=== PATIENT | male | born 1990 | race Caucasian/White ===

== ENCOUNTER 2021-10-15 19:06 | Emergency (ER) | payer BC, SELFPAY ==
[2021-10-15 19:16] VITALS: BP 110/72; PULSE 121; RESP 22; TEMP 38.1; O2SAT 94; BMI 28.5
[2021-10-15] MEDS: acetaminophen 500 mg Tablet 1000 MG PO (19:57)
[2021-10-15 19:58] LABS: Basophils % 0.2 %; Hematocrit 43.5 % (42.0-52.0); Hemoglobin 15.1 g/dL (11.7-16.6); Lymphocytes # 0.7 10^3/uL (0.8-4.8); Lymphocytes % 15.5 %; Mean Corpuscular HGB Conc 34.7 g/dL (30.0-36.0); Mean Corpuscular Hemoglobin 30.8 pg (28.0-34.0); Mean Corpuscular Volume 88.8 fl (80-94); Mean Platelet Volume 10.9 fL (7.4-10.4); Monocytes # 0.1 10^3/uL (0.2-0.9); Monocytes % 3.2 %; Neutrophils # 3.54 10^3/uL (1.8-7.7); Neutrophils % 80.9 %; Nucleated Red Blood Cells % 0 %; Platelet Count 81 10^3/cmm (130-400); Red Cell Distribution Width 11.4 % (12.1-15.1); White Blood Count 4.4 10^3/uL (4.0-10.0)
[2021-10-15 20:09] LABS: Alanine Aminotransferase 45 U/L (0-41); Albumin Level 4.2 g/dL (3.5-5.2); Alkaline Phosphatase 57 IU/L (40-130); Anion Gap 15.6 (5-19); Aspartate Amino Transferase 70 U/L (0-40); Blood Urea Nitrogen 10 mg/dL (6-20); Calcium 7.7 mg/dL (8.5-10.5); Carbon Dioxide 27 mmol/L (22-29); Chloride 96 mmol/L (98-107); Globulin 2.4 g/dL (1.3-4.6); Glomerular Filtration Rate 69.7 mL/min (90-130); Glucose 99 mg/dL (65-115); Lipase 52 U/L (13-60); Osmolality Calculated 279 mOsm/kg (285-295); Potassium 3.6 mmol/L (3.5-5.1); Sodium 135 mmol/L (136-145); Total Bilirubin 0.3 mg/dL (0.15-1.2); Total Protein 6.6 g/dL (6.6-8.7)
[2021-10-15 21:13] VITALS: TEMP 38.1
--- NOTE | 2021-10-15 21:32 | XRR_ITS ---
PROCEDURE INFORMATION: Exam: XR Chest Exam date and time: 10/15/2021 9:32 PM Age: 31 years old Clinical indication: Cough and shortness of breath; Additional info: Covid+ , fevers TECHNIQUE: Imaging protocol: XR of the chest. Views: 1 view. COMPARISON: No relevant prior studies available. FINDINGS: Lungs: Unremarkable. No consolidation. Pleural spaces: Unremarkable. No pleural effusion. No pneumothorax. Heart/Mediastinum: Unremarkable. No cardiomegaly. Bones/joints: Unremarkable. XR/XR chest 1V portable [id number] IMPRESSION: No acute findings.
--- NOTE | 2021-10-15 22:31 | PC.NURSE ---
patient in no obivous distress. patient given ice water for nourishment per provider. patient sitting in chair. Patinet informed of wait.. patient denies further needs/complaints at this time.
--- NOTE | 2021-10-15 22:34 | ED_ITS ---
HPI - Nausea/Vomiting/Diarrhea General: Chief complaint: Nausea/Vomiting/Diarrhea Stated complaint: covid +, N/V Time Seen by Provider: 10/15/21 21:39 History of Present Illness: HPI Narrative: Patient is a 31-year-old male comes to the ED with Covid symptoms. Patient says symptoms started approximately 5 days ago. He has been having a cough that is dry nonproductive. Last 3 days he has developed nausea, vomiting and diarrhea. He went to [facility] yesterday in tested positive for COVID-19 and is set up to have monoclonal antibody infusions done on Wednesday. He was discharged home from [facility] yesterday with some Zofran and that has helped with his nausea. Associated nausea: Yes Associated symtoms: Reports nausea; Denies change in vision, chest pain, dysuria, fatigue, headache(s) or palpitations Review of Systems Const: Reports: fever(s); Denies: chills or fatigue Eyes: Denies: change in vision or eye discomfort ENMT: Denies: throat pain, odynophagia, nasal discharge or nasal congestion Card: Denies: chest pain, palpitations, edema, swelling of feet/ankles, dyspnea on exertion or orthopnea Resp: Reports: non-productive cough; Denies: dyspnea or productive cough GI: Reports: nausea, vomiting and diarrhea; Denies: abdominal pain, constipation or hematochezia : Denies: flank pain, difficulty urinating, dysuria or hematuria Musc: Denies: neck pain, back pain or extremity swelling Skin/Breast: Denies: rash or new lesions Neuro: Denies: headache(s), numbness in extremities or weakness in extremities Physical Exam Const: COMMON NORMALS: no acute distress, patient oriented x3 and alert GENERAL APPEARANCE: cooperative and comfortable HENMT: COMMON NORMALS: normocephalic HEAD & SCALP: normocephalic MOUTH: Normal oral and palatal mucosa present THROAT: posterior oropharynx normal and uvula midline Neck/C-Spine: COMMON NORMALS: supple GENERAL: Yes normal visual inspection Resp: COMMON NORMALS: normal respiratory effort, No retractions, No use of accessory muscles and clear to auscultation bilaterally AUSCULTATION: clear to auscultation bilaterally Cardio: COMMON NORMALS: regular rate, regular rhythm, S1 normal heart sound present, S2 normal heart sound present, No gallops present (Cardio), No clicks present (Cardio), No murmurs present (Cardio) and Peripheral pulses 2+ throughout RATE: regular rate RHYTHM: regular rhythm HEART SOUNDS: S1 normal heart sound present and S2 normal heart sound present PERIPHERAL PULSES: Peripheral pulses 2+ throughout GI: COMMON NORMALS: Normal to inspection, nondistended, normoactive bowel sounds present, Soft to palpation, non-tender and no masses PALPATION: Yes Soft to palpation : COMMON NORMALS: Yes no CVA tenderness BLADDER/KIDNEY EXAM: Yes no CVA tenderness Back/Pelvis: COMMON NORMALS: no CVA tenderness Extremity: COMMON NORMALS: normal to inspection Neuro: COMMON NORMALS: patient oriented x3 and moves all extremities SENSORIUM/ORIENTATION: Yes alert Skin: GENERAL SKIN EXAM: dry skin Course Vital Signs: Vital signs: Vital Signs Temperature 100.3 F H 10/15/21 22:55 Pulse Rate 90 10/15/21 22:55 Respiratory Rate 18 10/15/21 22:55 Blood Pressure 116/75 10/15/21 22:55 Pulse Oximetry 94 10/15/21 22:55 MDM - Nausea/Vomiting/Diarrhea MDM Narrative: Medical decision making narrative: Patient is a 31-year-old male comes to the ED with COVID-19 symptoms. He tested positive for COVID-19 at [facility] couple days ago and is set up to have monoclonal antibody infusions this coming Wednesday. Temperature 100.6 rest of vitals are stable. Patient was given Tylenol while here in the ED to treat the fever. Labs were unremarkable. Covid positive. Chest x-ray showed no acute findings. Patient was diagnosed with COVID-19 and discharged home with prescription for Zofran, azithromycin and prednisone. He was given strict return to ED precautions. Follow-up with his PCP in 7 to 10 days reevaluation. I told him to make sure he goes to his monoclonal antibody infusion appointment on Wednesday. Patient understood agree with plan. Lab Data: Attestation: I reviewed the patient's lab results. Labs: Lab Results 10/15/21 10/15/21 10/15/21 19:38 19:38 19:38 WBC 4.4 10^3/uL 10^3/ uL (4.0-10.0) RBC 4.90 10^6/uL 10^6 /uL (4.1-5.3) Hgb 15.1 g/dL g/dL (11.7-16.6) Hct 43.5 % % (42.0-52.0) MCV 88.8 fl fl (80-94) MCH 30.8 pg pg (28.0-34.0) MCHC 34.7 g/dL g/dL (30.0-36.0) RDW 11.4 % L % (12.1-15.1) Plt Count 81 10^3/cmm L 10^ 3/cmm (130-400) MPV 10.9 fL H fL (7.4-10.4) Neut % (Auto) 80.9 % % Lymph % (Auto) 15.5 % % [place] % (Auto) 3.2 % % Eos % (Auto) 0.0 % % Baso % (Auto) 0.2 % % Neut # (Auto) 3.54 10^3/uL 10^3 /uL (1.8-7.7) Lymph # (Auto) 0.7 10^3/uL L 10^ 3/uL (0.8-4.8) [place] # (Auto) 0.1 10^3/uL L 10^ 3/uL (0.2-0.9) Eos # (Auto) 0.0 10^3/uL 10^3/ uL (0.0-0.8) Baso # (Auto) 0.0 10^3/uL 10^3/ uL (0.0-0.1) Nucleated RBC % (a uto) 0 % % Nucleated RBCs # 0.0 /100WBC /100W BC Sodium 135 mmol/L L mmol /L (136-145) Potassium 3.6 mmol/L mmol/L (3.5-5.1) Chloride 96 mmol/L L mmol/ L (98-107) Carbon Dioxide 27 mmol/L mmol/L (22-29) Anion Gap 15.6 (5-19) BUN 10 mg/dL mg/dL (6-20) Creatinine 1.2 mg/dL mg/dL (0.7-1.2) GFR Calculation 69.7 mL/min L mL/ min (90-130) Glucose 99 mg/dL mg/dL (65-115) Calculated Osmolal ity 279 mOsm/kg L mOs m/kg (285-295) Calcium 7.7 mg/dL L mg/dL (8.5-10.5) Total Bilirubin 0.3 mg/dL mg/dL (0.15-1.2) AST 70 U/L H U/L (0-40) ALT 45 U/L H U/L (0-41) Alkaline Phosphata se 57 IU/L IU/L (40-130) Total Protein 6.6 g/dL g/dL (6.6-8.7) Albumin 4.2 g/dL g/dL (3.5-5.2) Globulin 2.4 g/dL g/dL (1.3-4.6) Lipase 52 U/L U/L (13-60) Coronavirus 229E ( PCR) Not detected (NOT DETECT) SARS-CoV-2 (PCR) Detected A (NOT DETECT) Imaging Data^: CXR: Attestation: I personally reviewed and interpreted this imaging study as follows: Radiologist's impression: [place] [address] XRay Report Signed Patient: Lucio Irwin Unit #: [id number] : 1990 Age/Sex: 31 / M ADM Date: 10/15/21 Loc: ER Room/Bed: Attending Dr: Ordering Provider/Ordering MD: Daniele Reynolds Date of Service: 10/15/21 Procedure(s): XR chest 1V portable [id number] Accession Number(s): [id number] Report Number: [id number] PROCEDURE INFORMATION: Exam: XR Chest Exam date and time: 10/15/2021 9:32 PM Age: 31 years old Clinical indication: Cough and shortness of breath; Additional info: Covid+ , fevers TECHNIQUE: Imaging protocol: XR of the chest. Views: 1 view. COMPARISON: No relevant prior studies available. FINDINGS: Lungs: Unremarkable. No consolidation. Pleural spaces: Unremarkable. No pleural effusion. No pneumothorax. Heart/Mediastinum: Unremarkable. No cardiomegaly. Bones/joints: Unremarkable. XR/XR chest 1V portable [id number] IMPRESSION: No acute findings. Dictated By: Dwayne Houston DO Signed By: RosemarieDwayne Signed Date/Time: 10/15/212231 DD/ 31 Discharge Plan Discharge Patient Disposition: Home Clinical Impression: COVID-19 Condition: Stable Prescriptions: New Zofran 4 mg tablet 4 mg PO Q8H PRN (Reason: nausea and vomiting) Qty: 20 RF: 0 azithromycin 250 mg tablet 250 mg PO DAILY 4 Days Qty: 4 RF: 0 prednisone 20 mg tablet 20 mg PO BID 5 Days Qty: 10 RF: 0 Discharge Orders: Discharge ED (Routine); Ordered 10/15/21 Ordered By: Daniele Reynolds Referrals: Damien Taylor DO [Primary Care Provider] - Discharge Diet: Regular Discharge Activity: Increase activity as tolerated Patient Instructions: COVID-19 (Coronavirus Disease 2019) (ED) Activity Restrictions/Additional Instructions: Follow-up with medical provider as directed and 5 to 7 days for reevaluation. Take medications as prescribed. Go to your scheduled monoclonal antibody infusions on Wednesday. Return to the ER or your medical provider if condition worsens. Please read and understand discharge instructions. Thank you for choosing [facility] for your healthcare needs today. Please realize this is an emergency room and that we are providing you with a medical screening exam and this may not be complete and all inclusive of all the testing and or work up that you may need to determine your ailment or severity of your illness. It is very important that you follow up as instructed or that you return to the Emergency Department should you have concerns or if your condition changes or worsens in any way. Coding Level of Care Code ED Tap Grinder for Comfort Mcdonough Exam Comprehensive
[2021-10-15] MEDS: azithromycin 250 mg Tablet 500 MG PO (22:46)
[2021-10-15 22:52] VITALS: BP 116/75; PULSE 90; RESP 20; TEMP 37.9; O2SAT 94
[2021-10-15 22:55] VITALS: BP 116/75; PULSE 90; RESP 18; TEMP 37.9; O2SAT 94
[2021-10-15 23:41] LABS: Adenovirus Not Detected (NOT DETECT); Chlamydia Pneumoniae Not Detected (NOT DETECT); Coronavirus 229E,HKU1,NL63,OC4 Not Detected (NOT DETECT); Human Metapneumovirus Not Detected (NOT DETECT); Human Rhinovirus/Enterovirus Not Detected (NOT DETECT); Influenza A Not Detected (NOT DETECT); Influenza A H1 Not Detected (NOT DETECT); Influenza A H1-2009 Not Detected (NOT DETECT); Influenza A H3 Not Detected (NOT DETECT); Influenza B Not Detected (NOT DETECT); Mycoplasma Pneumoniae Not Detected (NOT DETECT); Parainfluenza Virus Type 1 Not Detected (NOT DETECT); Parainfluenza Virus Type 2 Not Detected (NOT DETECT); Parainfluenza Virus Type 3 Not Detected (NOT DETECT); Parainfluenza Virus Type 4 Not Detected (NOT DETECT); Respiratory Syncytial Virus A Not Detected (NOT DETECT); Respiratory Syncytial Virus B Not Detected (NOT DETECT); SARS-COV-2 Detected (NOT DETECT)
--- NOTE | 2021-10-16 10:14 | PC.NURSE ---
Rx x 3 meds called to in [place].
== END 2021-10-15 23:03 | disposition home or self-care (01) ==
PROVIDERS: Emergency Medicine; Emergency Provider Physician Assistant; PCP Electrodiagnostic Medicine
DX: U07.1 COVID-19 (principal)
CPT/HCPCS: 71045; 80053; 83690; 85025; 87635; 96372; 99283; J2930; Q0144

== ENCOUNTER 2021-10-17 10:10 | Outpatient (CLI) | payer BC, SELFPAY ==
[2021-10-17 10:01] VITALS: BP 119/71; PULSE 108; RESP 16; TEMP 36.5; O2SAT 90
[2021-10-17 10:52] VITALS: BP 111/64; PULSE 74; RESP 18; TEMP 36.8; O2SAT 97
[2021-10-17 11:34] VITALS: BP 114/68; PULSE 96; RESP 18; TEMP 36.7; O2SAT 98
== END 2021-10-17 10:11 | disposition home or self-care (01) ==
PROVIDERS: PCP Electrodiagnostic Medicine; Visit Provider Nurse Practitioner
DX: U07.1 COVID-19 (principal)
CPT/HCPCS: 96365